=== PATIENT | female | born 1945 | race Caucasian/White ===

== ENCOUNTER 2017-01-31 17:08 | Emergency (ER) | payer MEDICARE, OTHER ==
[~2017-01-31] VITALS: Ht 162.6 cm; Wt 50.0 kg
[2017-01-31 17:16] VITALS: Ht 162.6 cm; Wt 50.0 kg
[2017-01-31] MEDS ORDERED: SOD CHLORIDE 0.9% 1,000 ML IV STA (17:51)
[2017-01-31] MEDS ORDERED: morphine 4 MG/ML VIAL IV STA (17:51)
[2017-01-31] MEDS ORDERED: ONDANSETRON 4 MG INJ IV STA (17:51)
[2017-01-31] MEDS ORDERED: PROPOFOL 100 ML IV ONE (18:00)
[2017-01-31] MEDS ORDERED: FENTAnyl 50 MCG/ML VIAL IV ONE (18:00)
[2017-01-31] MEDS ORDERED: DIPHTH/TET/ACEL PERTUSS (ADULT) 0.5 ML VIAL IM* ONE (18:00)
[2017-01-31] MEDS ORDERED: DIAZ-90 PO (18:40)
[2017-01-31] MEDS ORDERED: FENTANYL PO (18:46)
--- NOTE | 2017-01-31 19:03 | RADRPT ---
PROCEDURE: Chest x-ray CLINICAL INDICATION: Shortness of breath TECHNIQUE: Chest single view COMPARISON: None FINDINGS: The heart is normal in size. The pulmonary vessels are normal in caliber. The lungs are clear. Th e costophrenic angles are sharp. There is a questionable old left femoral neck fracture. Bones are osteopenic. IMPRESSION: No acute cardiopulmonary disease. RPTAT: HH .Foster Bailey MD, MD Date Time Electronically viewed and signed by .Foster Bailey MD, on 01/31/2017 19:03 .W/
--- NOTE | 2017-01-31 19:06 | RADRPT ---
PROCEDURE: XR Wrist. CLINICAL INDICATION: Pain TECHNIQUE: AP, lateral and oblique views of the right wrist were performed. COMPARISON: No prior studies are available for comparison. FINDINGS: Multiple views of the right wrist were obtained. The exam is limited due to suboptimal positioning. There is distal radius fracture with dorsal angulation and impaction. There is also questionable nondisplaced fracture of the ulnar styloid. No other obvious fractures are seen. The carpal bones are normally aligned. There is marked osteopenia of the bones. Soft tissue swelling is noted in th e region of the fracture. IMPRESSION: 1. Limited study due to suboptimal positioning. 2. Distal radius fracture with dorsal angulation and impaction. 3. There is also questionable nondisplaced fracture of the ulnar styloid. 4. Marked osteopenia of the bones. 5. Associated soft tissue swelling RPTAT: HH .Foster Bailey MD, Date Time Electronically viewed and signed by .Foster Bailey MD, on 01/31/2017 19:06 .W/
--- NOTE | 2017-01-31 19:07 | RADRPT ---
PROCEDURE: X-ray right elbow CLINICAL INDICATION: Pain in the right elbow TECHNIQUE: 3 views right elbow. No true lateral is provided. COMPARISON: None FINDINGS: No acute fracture or dislocation. Soft tissues unremarkable. IMPRESSION: No acute fracture. RPTAT: [facility] Physician Stacy Date Time Electronically viewed and signed by Physician Stacy on 01/31/2017 19:07 RS/
[2017-01-31 19:15] LABS: ADD SCAN DIFF NO
[2017-01-31 19:21] LABS: BASOPHILS % 0.3 % (0.0-2.0); EOSINOPHILS # 0.1 10^3/ul (0.0-0.5); EOSINOPHILS % 0.8 % (0.0-7.0); HEMATOCRIT 37.6 % (37.0-47.0); HEMOGLOBIN 12.8 g/dl (12.0-16.0); LYMPHOCYTES # 1.6 10^3/ul (0.8-2.9); LYMPHOCYTES % 17.5 % (15.0-51.0); MEAN CORPUSCULAR VOLUME 96.9 fl (82.0-101.0); MEAN PLATELET VOLUME 9.1 fl (7.4-10.4); MONOCYTE # 0.6 10^3/ul (0.3-0.9); MONOCYTES % 6.7 % (0.0-11.0); NEUTROPHIL # 6.6 10^3/ul (1.6-7.5); NEUTROPHILS % 74.4 % (39.0-77.0); PLATELET COUNT 317 10^3/UL (140-415); RED BLOOD COUNT 3.88 10^6/ul (4.20-5.40); RED CELL DISTRIBUTION WIDTH 13.4 % (11.5-14.5); WHITE BLOOD COUNT 8.9 10^3/ul (4.8-10.8)
[2017-01-31 19:44] LABS: CALCIUM 10.5 mg/dl (8.4-10.2); CREATININE 0.8 mg/dl (0.44-1.00); POTASSIUM 4.2 mmol/L (3.5-5.1)
[2017-01-31] MEDS ORDERED: OXYC-279 PO (20:37)
[2017-01-31] MEDS ORDERED: IBUP-1542 PO (20:37)
[2017-01-31 20:45] VITALS: BP 121/77; PULSE 86; RESP 14
[2017-01-31 20:54] LABS: INR 0.88; PROTIME 11.9 Sec (12.2-14.2); PT RATIO 0.9
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
== END 2017-01-31 20:50 | disposition home or self-care (01) ==
LOC: E/R 17:08
DX: S52.501A Unspecified fracture of the lower end of right radius, initial encounter for closed fracture (principal); S52.611A Displaced fracture of right ulna styloid process, initial encounter for closed fracture; V49.50XA Passenger injured in collision with unspecified motor vehicles in traffic accident, initial encounter
CPT/HCPCS: 25605; 36415; 71010; 73080; 73110; 80048; 85025; 85610; 90471; 90715; 96374; 96375; 99285; J2270; J2405; J3010; J7030

== ENCOUNTER 2017-05-18 12:32 | Day surgery (SDC) | payer MEDICARE ==
[~2017-05-18] VITALS: Ht 160 cm; Wt 48.0 kg
[2017-05-18] VITALS (13 sets, daily range): BP systolic 115–133; BP diastolic 62–81; PULSE 78–103; RESP 15–24; Ht 160 cm; Wt 48.0 kg
[~2017-05-18 12:32] MED LIST: ATROPINE 1 MG/10 ML SYRINGE IV PRN; DIAZ-90 PO; DIPHENHYDRAMINE 50 MG INJ IV PRN; EPHEDrine SULFATE 50 MG/5 ML SYG IV PRN; FENTANYL PO; FENTAnyl 50 MCG/ML VIAL IV PRN; HYDROmorphONE (0.2 MG/ML) 10ML SYG IV PRN; IBUP-1542 PO; LABETALOL HCL 20MG INJ IV PRN; MEPERIDINE 25 MG INJ IV PRN; MIDAZOLAM 1 MG/ML 2 ML INJ IV PRN; ONDANSETRON 4 MG INJ IV PRN; OXYC-279 PO; OXYCODONE/ACETAMINOPHEN (5/325) TAB PO PRN; hydrALAzine 20 MG INJ IV PRN; morphine (1 MG/ML) 10ML SYRINGE IV PRN
--- NOTE | 2017-05-18 12:57 | HPN ---
Date/Time of Note Date/Time of Note DATE: 05/18/17 TIME: 12:57 Interval H&P Admission Note Pt. seen H&P reviewed: No system changes BOBBY CORREA May 18, 2017 12:57
[2017-05-18] MEDS ORDERED: PHEN37.53 PO (13:01)
--- NOTE | 2017-05-18 14:19 | RADRPT ---
PROCEDURE: XR Chest. CLINICAL INDICATION: Shortness of breath TECHNIQUE: Single portable view of the chest was obtained COMPARISON: January 31, 2017 FINDINGS: The trachea is midline. The cardiac silhouette and pulmonary vascularity are within normal limits. T he lungs are clear. The costophrenic angles are sharp. IMPRESSION: 1. No evidence of acute cardiopulmonary disease. RPTAT: AAPP Physician Jaec Date Time Electronically viewed and signed by Anjali Pantoja Physician on 05/18/2017 14:19 RYLEE/
[2017-05-18] MEDS ORDERED: ROPIVACAINE 0.5 % 30 ML VIAL ONE (14:41)
[2017-05-18] MEDS ORDERED: LIDOCAINE 1% (STERILE-PAK) 30 ML INJ ONE (15:04)
[2017-05-18] MEDS ORDERED: POLYMYXIN/BACITRACIN 1L IRRIG ONE (15:04)
[2017-05-18] MEDS ORDERED: BUPIVACAINE 0.5% (SDV) 30 ML INJ ONE (15:04)
[2017-05-18] MEDS ORDERED: DEXAMETHASONE 4 MG/ML 1 ML INJ ONE (15:07)
[2017-05-18] MEDS ORDERED: ONDANSETRON 4 MG INJ ONE (15:09)
[2017-05-18] MEDS ORDERED: LABETALOL HCL 20MG INJ ONE (15:34)
[2017-05-18] MEDS ORDERED: CEFAZOLIN 1 GM INJ ONE (15:40)
[2017-05-18] MEDS ORDERED: VASOPRESSIN 20 UNITS INJ ONE (16:24)
[2017-05-18] MEDS ORDERED: POLYMYXIN/BACITRACIN 1L IRRIG IRR ONE (16:24)
--- NOTE | 2017-05-18 17:40 | RADRPT ---
PROCEDURE: Intraoperative imaging of the right wrist with fluoroscopy. CLINICAL INDICATION: Right wrist pain. Intraoperative. TECHNIQUE: 8 images of the right wrist were obtained in the operating room with an image intensifi er. No radiologist was in attendance. Fluoroscopy time is 0.2 minutes. COMPARISON: 01/31/2017. FINDINGS: Images demonstrate open reduction and internal fixation distal radius with a plate and multiple scre ws. IMPRESSION: 1. Intraoperative imaging of the right wrist. RPTAT: QQ .Efren Sanches MD, Date Time Electronically viewed and signed by .Efren Sanches MD, on 05/18/2017 17:40 .R/
--- NOTE | 2017-05-18 17:43 | OPPN ---
Date/Time of Note Date/Time of Note DATE: 05/18/17 TIME: 17:41 Operative Report Preoperative Diagnosis Right distal radius fracture, intra-articular, malunion. Right carpal tunnel syndrome Postoperative Diagnosis Right distal radius fracture, intra-articular, malunion. Right carpal tunnel syndrome Operation/Procedure Performed Open reduction internal fixation right distal radius fracture, intra-articular, with osteotomy, plate and screw fixation. Right carpal tunnel release- open. Tenolysis of right extensor pollicis longus tendon Surgeon see signature line pier master assistant none Anesthesia: general Estimated blood loss: 0 - 10 ml's Transfusion Required none Specimen none Grafts/Implants none Complications none BOBBY CORREA May 18, 2017 17:43
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
== END 2017-05-18 19:30 | disposition home or self-care (01) ==
LOC: SDS 12:32
PROVIDERS: ATTEND Orthopaedic Surgery Hand Surgery
DX: S52.571A Other intraarticular fracture of lower end of right radius, initial encounter for closed fracture (principal); G56.01 Carpal tunnel syndrome, right upper limb; X58.XXXA Exposure to other specified factors, initial encounter; Y92.89 Other specified places as the place of occurrence of the external cause; Y93.89 Activity, other specified
CPT/HCPCS: 25400; 64721; 71010; 73110; J0690; J1100; J2405; J2795